=== PATIENT | female | born 1940 | race Caucasian/White ===

== ENCOUNTER → 2016-09-26 | Day surgery (SDC) | payer MEDICARE, BC ==
[~2016-09-26] VITALS: Ht 157.5 cm; Wt 65.5 kg
[~2016-09-26] MED LIST: ELIQUIS5 MG PO; OCUVITE SOFTGE1 EACH PO; PROLIA60 MG/ML IM; THERA-VITE W/ B1 TAB PO; TOPROL XL 5050 MG PO
--- NOTE | ~2016-09-26 | OR ---
PATIENT'S NAME: EMMANUEL VARMA [facility] AGE: 76 Y [address] ROOM: [place] [id number] [place] [facility] [place]: 09[place]26/2016 OR/Procedure Report DISCHARGE DATE: FAMILY PHYSICIAN: Amanda Garcia MD ATTENDING PHYSICIAN: ANA HINES SURGEON: Ana Hines MD RECREATION AIDE: None. DATE OF PROCEDURE: 09/26/2016 PREOPERATIVE DIAGNOSIS: Left forehead basal cell carcinoma. POSTOPERATIVE DIAGNOSIS: Left forehead basal cell carcinoma. PROCEDURE: 1. Wide local excision of the left forehead 6 x 2 cm lesion. 2. Complex closure of 6 cm. ANESTHESIA: MAC with local. COMPLICATIONS: None. BLOOD LOSS: Less than 10 mL. FINDINGS: Negative frozen section margins. INDICATION: The patient is a 76-year-old female with a biopsy-proven left forehead basal cell carcinoma. DESCRIPTION OF PROCEDURE: The patient was brought from the preoperative area to the operating suite and placed on table in supine position. All pressure points were padded. A time-out was performed correctly identifying the patient and the procedure. MAC anesthesia was initiated and the forehead was prepped by using a clipper for the hair at the hairline, cleansing with alcohol, and then injected with a mixture of 0.5% Marcaine with epinephrine and 1% lidocaine with epinephrine. Once this area had been anesthetized and marked, it was prepped and draped in the usual sterile fashion. A circular excision was performed in a subcutaneous and supragaleal plane and sent off for frozen section margins, which returned as negative. Terese's triangles were excised bilaterally to make a linear closure. Wide undermining was performed. She was closed with 4-0 Vicryl sutures deep and a 4-0 running nylon suture for the skin. She was cleansed, ointment applied, and this concluded the procedure. PATIENT'S NAME: EMMANUEL VARMA [facility] AGE: 76 Y [address] ROOM: [place] [id number] [place] [facility] [place]: 09/26/2016 OR/Procedure Report DISCHARGE DATE: FAMILY PHYSICIAN: Amanda Garcia MD ATTENDING PHYSICIAN: ANA HINES MD CARMEN CONNER/angel /[id number] d: 09/26/16 1421 t: 10/03/16 1054, OPERATIVE SUMMARY
== END | disposition disaster alternative care site (69) ==
LOC: GPOC 09-19 09:00 → GSDC 07:16 → GPOC 09:00
PROC: 0JB10ZZ Excision of Face Subcutaneous Tissue and Fascia, Open Approach (ICD-10-PCS; principal; 2016-09-26)
DX: C44.319 Basal cell carcinoma of skin of other parts of face (principal); I48.0 Paroxysmal atrial fibrillation; I10 Essential (primary) hypertension; M81.0 Age-related osteoporosis without current pathological fracture; Z87.891 Personal history of nicotine dependence; Z90.49 Acquired absence of other specified parts of digestive tract; Z98.41 Cataract extraction status, right eye; Z98.42 Cataract extraction status, left eye; Z98.890 Other specified postprocedural states; Z79.899 Other long term (current) drug therapy
CPT/HCPCS: J0171; J2001; J7120

== ENCOUNTER → 2016-12-05 | Outpatient (CLI) | payer MEDICARE, BC | LOC: GBCOE 08:30 | DX: Z12.31 Encounter for screening mammogram for malignant neoplasm of breast (principal); R92.1 Mammographic calcification found on diagnostic imaging of breast | CPT/HCPCS: G0202 ==